=== PATIENT | male | born 2000 | race Caucasian/White ===

== ENCOUNTER 2021-05-10 01:19 | Emergency (ER) | payer BC ==
[2021-05-10] MEDS ORDERED: Lidocaine 1% 10 ML MDV INJECT ONE (02:15)
[2021-05-10] MEDS ORDERED: Lidocaine 1% with EPINEPHrine 1:100,000 20 ML MDV INJECT ONE (02:20)
[2021-05-10] MEDS ORDERED: Bupivacaine 0.5% 10 ML SDV INJECT ONE (02:20)
--- NOTE | 2021-05-10 02:21 | EDM.PDOC ---
ED HPI GENERAL MEDICAL PROBLEM - General Chief Complaint: Laceration Stated Complaint: RT ELBOW LAC Time Seen by Provider: 05/10/21 02:09 Source of Information: Reports: Patient History Limitations: Reports: No Limitations - History of Present Illness INITIAL COMMENTS - FREE TEXT/NARRATIVE: Mr. Faustin is a very pleasant 21-year-old man who now presents the ED after falling out of his lofted bed at his dorm around midnight tonight, falling to the ground and cutting his proximal right forearm. He is otherwise uninjured. The patient states that his last tetanus vaccination was about 2 years ago. Prior to tonight's injury, the patient denies having a recent fever, chills, sore throat, ear pain, nasal or sinus congestion, cough, dyspnea, chest pain, palpitations, nausea, vomiting, constipation, diarrhea, abdominal pain, urinary symptoms, recent weight gain or weight loss, recent bloody bowel movements or black bowel movements, recent joint aches, headaches, or rashes. The patient's PCP is in [place], [place]. He received a single J&J COVID vaccination. No influenza vaccination this season. Right Elbow Pain Score (Numeric/FACES): 4 - Related Data Allergies Allergy/AdvReac Type Severity Reaction Status Date / Time No Known Allergies Allergy Verified 05/10/21 01:26 Home Meds: Home Meds . [No Known Home Meds] 05/10/21 [History] Past Medical History - Past Surgical History HEENT Surgical History: Reports: Adenoidectomy, Tonsillectomy Social & Family History - Tobacco Use Tobacco Use Status *Q: Never Tobacco User - Alcohol Use Alcohol Use History: Yes Alcohol Use Frequency: Socially - Recreational Drug Use Recreational Drug Use: No - Living Situation & Occupation Living situation: Reports: Single, Other (Dorm) Occupation: Student ([employer]) ED ROS GENERAL - Review of Systems Review Of Systems: Comprehensive ROS is negative, except as noted in HPI. ED EXAM, SKIN/RASH Exam: See Below Exam Limited By: No Limitations General Appearance: Alert, WD/WN, No Apparent Distress Extremities: Other (There is an approximately 3.0 cm irregular laceration to the volar aspect of the proximal right forearm. Not currently bleeding. Neurovascular status of the right upper extremity is intact.) ED SKIN PROCEDURES - Laceration/Wound Repair Right Arm Appearance: Subcutaneous, Irregular, Clean Distal NVT: Neuro & Vascular Intact, No Tendon Injury Anesthetic Type: Local Local Anesthesia - Lidocaine (Xylocaine): 1% with EPI (50:50 admixture) Local Anesthesia - Bupivicaine (Marcaine): 0.5% Plain (50:50 admixture) Local Anesthetic Volume: 1cc Skin Prep: Providone-Iodine (Betadine) Exploration/Debridement/Repair: Wound Explored, In a Bloodless Field, Explored to Base, No Foreign Material Found Closed with: Sutures Lac/Wound length In cm: 3.0 Suture Size: 3-0 # of Sutures: 8 Suture Type: Nylon (Ethilon), Running Drain Placement: No Sterile Dressing Applied: Nurse Tetanus Status Addressed: Yes Complications: No Course - Vital Signs Last Recorded V/S: Last Vital Signs Temp 36.9 C 05/10/21 01:27 Pulse 92 05/10/21 01:27 Resp 18 05/10/21 01:27 BP 113/75 05/10/21 01:27 Pulse Ox 100 05/10/21 01:27 - Orders/Labs/Meds Meds: Medications Discontinued Medications Generic Name Dose Route Start Last Admin Trade Name Destini PRN Reason Stop Dose Admin Bupivacaine HCl 10 ml 05/10/21 02:20 05/10/21 02:25 Bupivacaine 0.5% 10 Ml Sdv INJECT 05/10/21 02:21 10 ml ONETIME ONE Administration Lidocaine/Epinephrine 20 ml 05/10/21 02:20 05/10/21 02:25 Lidocaine 1% With Epinephrine 1:100,000 20 Ml Mdv INJECT 05/10/21 02:21 20 ml ONETIME ONE Administration - Re-Assessments/Exams Free Text/Narrative Re-Assessment/Exam: 05/10/21 02:20 The patient has an approximately 3.0 cm irregular laceration to his proximal right forearm that will require suturing. 05/10/21 02:46 The wound was irrigated per Rochelle BROWN. After Betadine was applied around the wound, a sterile field was created in the usual fashion. The wound was infiltrated with a 50-50 admixture of bupivacaine 0.5% without epinephrine and lidocaine 1% with epinephrine, to good anesthetic effect. The wound was then closed with 8 simple running sutures using 3-0 Ethilon. The patient tolerated the procedure well. A sterile dressing will be applied per Rochelle BROWN. The sutures should be ready for removal by 05/18/2021. Departure - Departure Time of Disposition: 02:47 Disposition: Home, Self-Care 01 Condition: Good Clinical Impression: Laceration of right forearm - Discharge Information *PRESCRIPTION DRUG MONITORING PROGRAM REVIEWED*: Not Applicable *COPY OF PRESCRIPTION DRUG MONITORING REPORT IN PATIENT TERE: Not Applicable Referrals: PCP,None [Primary Care Provider] - Forms: ED Department Discharge Additional Instructions: You were seen in the emergency room after falling out of your lofted bed, cutting your right forearm. Your wound was closed with 8 sutures in the ER. Keep the wound clean with ordinary soap and water when you bathe. Pat dry, then apply a sterile dressing, daily. We do not recommend that you apply an antibiotic ointment. While you may clean the wound, the wound should not be soaked, such as with swimming. You may take [id number] Tylenol or ibuprofen as needed for discomfort. The sutures should be ready for removal by 05/18/2021. They can be removed at the walk-in clinic or in the ER. Do not try to remove the sutures yourself. It is highly unlikely that the wound will become infected, but if there are any concerns of an infection, including significant swelling, redness, drainage, or inordinate pain, please do not hesitate to return to the ER for reevaluation. Sepsis Event Note (ED) - Evaluation Sepsis Screening Result: No Definite Risk - Focused Exam Vital Signs: Vital Signs Temp Pulse Resp BP Pulse Ox 05/10/21 01:27 36.9 C 92 18 113/75 100
== END 2021-05-10 03:00 | disposition home or self-care (01) ==
LOC: JD.ED 01:19
DX: S51.811A Laceration without foreign body of right forearm, initial encounter (principal); W06.XXXA Fall from bed, initial encounter
CPT/HCPCS: 12002; 99282; J3490